=== PATIENT | male | born 2000 | race Caucasian/White ===

== ENCOUNTER 2019-08-24 07:35 | Day surgery (SDC) | payer OTHER ==
[~2019-08-24] VITALS: Ht 177.8 cm; Wt 87.3 kg
[2019-08-24 08:29] VITALS: BP 157/98; PULSE 77; TEMP 98.3
[2019-08-24] MEDS ORDERED: REGLAN 10MG10 MG/TAB PO (08:37)
[2019-08-24] MEDS ORDERED: PROTONIX 40MG T40 MG PO (08:37)
[2019-08-24 09:15] VITALS: BP 153/106; PULSE 69; TEMP 98.9
[2019-08-24 09:30] VITALS: BP 140/76; PULSE 60
[2019-08-24 09:45] VITALS: BP 149/82; PULSE 70
[2019-08-24 10:00] VITALS: BP 136/80; PULSE 62
== END 2019-08-24 10:30 | disposition home or self-care (01) ==
LOC: SDCO 07:35
DX: K21.0 Gastro-esophageal reflux disease with esophagitis (principal); K29.30 Chronic superficial gastritis without bleeding; Z87.891 Personal history of nicotine dependence; K92.1 Melena
CPT/HCPCS: J2250; J3010; J7030

== ENCOUNTER → 2019-09-04 | Outpatient (CLI) | payer OTHER ==
[~2019-09-04] MED LIST: PROTONIX 40MG T40 MG PO; REGLAN 10MG10 MG/TAB PO
== END ==
LOC: COL.RAD 07:50
DX: R11.2 Nausea with vomiting, unspecified (principal); R10.9 Unspecified abdominal pain; R93.5 Abnormal findings on diagnostic imaging of other abdominal regions, including retroperitoneum
CPT/HCPCS: A9585

== ENCOUNTER → 2023-12-14 | Outpatient (CLI) | payer OTHER | LOC: MHCPAIN 11:05 | DX: M54.50 Low back pain, unspecified (principal); M53.3 Sacrococcygeal disorders, not elsewhere classified; M25.551 Pain in right hip | CPT/HCPCS: G0463 ==

== ENCOUNTER → 2024-01-05 | Outpatient (CLI) | payer OTHER ==
[~2024-01-05] MED LIST changes: +Iohexol 300 - 10 ML VIAL ONE
== END ==
LOC: MHCPAIN 09:31
DX: M46.1 Sacroiliitis, not elsewhere classified (principal); M54.50 Low back pain, unspecified; M53.3 Sacrococcygeal disorders, not elsewhere classified
CPT/HCPCS: G0260; J0665; J1010; Q9967

== ENCOUNTER → 2024-01-18 | Outpatient (CLI) | payer OTHER ==
[~2024-01-18] MED LIST changes: -Iohexol 300 - 10 ML VIAL ONE
== END ==
LOC: MHCPAIN 11:16
DX: M54.16 Radiculopathy, lumbar region (principal); M46.1 Sacroiliitis, not elsewhere classified
CPT/HCPCS: G0463